=== PATIENT | male | born 1980 | race Caucasian/White ===

== ENCOUNTER 2020-10-07 13:08 | Emergency (ER) | payer OTHER, SELFPAY ==
--- NOTE | ~2020-10-07 | XR_ITS ---
EXAMINATION: XR CHEST CLINICAL INFORMATION: Syncope COMPARISON: Previous chest x-ray February 2017 TECHNIQUE: Frontal view of the chest was obtained. FINDINGS: The cardiac and mediastinal contours are stable. There may be bronchial wall thickening seen in the right upper lobe. This is similar to previous chest x-ray 2016. The lungs are otherwise clear. There is no pleural effusion or pneumothorax. Bony structures are unremarkable. XR/XR chest 1V IMPRESSION: Question bronchial wall thickening in the right upper lobe. This is similar to February 2017 exam. Otherwise unremarkable exam.
[2020-10-07 13:31] VITALS: BP 135/94; PULSE 74; RESP 18; TEMP 36.8; O2SAT 97; BMI 24.5
--- NOTE | 2020-10-07 13:38 | ECG_ITS ---
Test Reason : SYNCOPE Blood Pressure : / mmHG Vent. Rate : 059 BPM Atrial Rate : 059 BPM P-R Int : 122 ms QRS Dur : 090 ms QT Int : 420 ms P-R-T Axes : 070 077 064 degrees QTc Int : 415 ms Sinus bradycardia Otherwise normal ECG No previous ECGs available Referred By: Generic ED Physician Electronically Signed By:JANEY MCGRATH MD
[2020-10-07 14:46] LABS: Glucose, Whole Blood 96 mg/dL (60-115)
[2020-10-07 14:47] LABS: MANUAL DIFF FLAG NO
[2020-10-07 14:49] LABS: Basophils Percent Auto 0.4 % (0-2); Eosinophils Absolute Auto 0.1 X10*3/uL (0.0-0.4); Eosinophils Percent Auto 1.9 % (0-4); Hematocrit 43.4 % (42-52); Hemoglobin 14.8 g/dl (14.0-18.0); Imm Gran Abs Auto 0.01 X10*3/uL (0.00-0.03); Imm Gran Pct Auto 0.1 % (0.0-0.4); Lymphocytes Absolute Auto 1.8 X10*3/uL (1.2-4.9); Lymphocytes Percent Auto 23.5 % (20-40); Mean Corpuscular HGB Conc 34.1 g/dl (31.0-36.0); Mean Corpuscular Hemoglobin 29.9 pg (27.0-33.0); Mean Corpuscular Volume 87.7 fL (80-98); Monocytes Absolute Auto 0.5 X10*3/uL (0.1-1.2); Monocytes Percent Auto 6.1 % (2-11); Neutrophils Absolute Auto 5.1 X10*3/uL (2.0-8.3); Platelet Count 271 X10*3/uL (160-400); Red Blood Count 4.95 X10*6/uL (4.60-5.80); Red Cell Distribution Width 12.1 % (11.0-16.0); White Blood Count 7.5 X10*3/uL (4.8-10.8)
[2020-10-07 15:16] LABS: Anion Gap 9 (12-20); Blood Urea Nitrogen 14 mg/dL (9-16); Calcium 9.8 mg/dL (8.4-10.2); Carbon Dioxide 27 mmol/L (22-29); Chloride 105 mmol/L (96-108); Creatinine Clr Calc Pharmacy 119.2; Estimated Glomerular Filt Rate > 60; Glucose Random 84 mg/dL (60-115); Potassium 4.8 mmol/L (3.3-5.1); Sodium 136 mmol/L (135-145)
[2020-10-07 15:18] LABS: Troponin-I High Sensitivity < 3.5 ng/L (<3.5-35.0)
--- NOTE | 2020-10-07 17:14 | PC.NURSE ---
CALLED WR PATIENT NO RESPONSE X3
== END 2020-10-07 18:12 | disposition left against medical advice (07) ==
PROVIDERS: Emergency Provider Emergency Medicine
DX: T67.5XXA Heat exhaustion, unspecified, initial encounter (principal); X58.XXXA Exposure to other specified factors, initial encounter; Y93.9 Activity, unspecified; Y92.9 Unspecified place or not applicable; Y99.9 Unspecified external cause status
CPT/HCPCS: 36415; 71045; 80048; 82947; 84484; 85025; 93005; 99283

== ENCOUNTER 2021-07-29 07:08 | Emergency (ER) | payer SELFPAY ==
--- NOTE | ~2021-07-29 | XR_ITS ---
EXAMINATION: XR CHEST CLINICAL INFORMATION: Shortness of breath. COMPARISON: 09/29/2020 chest radiograph. TECHNIQUE: Frontal view of the chest was obtained. FINDINGS: No significant abnormality is noted involving the heart, lungs, mediastinum, bony thorax or soft tissues. XR/XR chest 1V IMPRESSION: No acute cardiopulmonary process.
[2021-07-29 07:46] VITALS: BP 126/73; PULSE 66; RESP 16; TEMP 37.3; O2SAT 96; BMI 25.2
[2021-07-29 07:57] VITALS: BP 126/73; PULSE 66; RESP 16; TEMP 37.3; O2SAT 96
--- NOTE | 2021-07-29 08:12 | ECG_ITS ---
Test Reason : SOB Blood Pressure : / mmHG Vent. Rate : 059 BPM Atrial Rate : 059 BPM P-R Int : 124 ms QRS Dur : 092 ms QT Int : 474 ms P-R-T Axes : 073 082 081 degrees QTc Int : 469 ms Sinus bradycardia Otherwise normal ECG When compared with ECG of 07-OCT-2020 14:26, No significant change was found Referred By: Lindsey Paul Electronically Signed By:JANEY MCGRATH MD
--- NOTE | 2021-07-29 08:25 | ED_ITS ---
HPI - SOB/Dyspnea General Chief Complaint: Dyspnea Stated Complaint: SOB Time Seen by Provider: 07/29/21 08:06 Source: patient Mode of arrival: ambulatory History of Present Illness HPI Narrative: 40-year-old male with past medical history disc herniation, substance abuse, presenting to the ED complaining of productive cough, subjective fever, SOB x1 day and mid thoracic back pain s/p heavy lifting at work yesterday. States feels like he cannot get a complete breath. Admits back pain worse with deep breathing/movement. Denies chest pain, abdominal pain, nausea, vomiting, diarrhea, pedal edema, recent travel, numbness, tingling, weakness, urinary incontinence/retention. Patient does admit to using heroin, denies using today, denies IVDA elicited complaint: shortness of breath and pain with inspiration Related Data Allergies Allergy/AdvReac Type Severity Reaction Status Date / Time bee pollen [BEE STINGS] Allergy Severe ANAPHYLAXIS Verified 10/07/20 13:31 Review of Systems Review of Systems: Constitutional: +subj Fever, No Chills,No Fatigue, No Malaise ENT/Mouth: No Ear Pain, No Nasal Congestion, No sore throat, No Rhinorrhea, No Swallowing Difficulty Eyes: No Eye Pain, No Swelling, No Redness, No Foreign Body, No Discharge, No Vision Changes Cardiovascular: No Chest Pain, + SOB, No Dyspnea on Exertion, No Orthopnea, No Edema, No Palpitations Respiratory: + Cough, + Sputum, No Dyspnea Gastrointestinal: No Nausea, No Vomiting, No Diarrhea, No Constipation, No Abdominal pain Genitourinary: No Dysuria, No Urinary Frequency, No Hematuria, No Urinary Incontinence, No Hesitancy Musculoskeletal: + joint pain, No Myalgias, No Joint Swelling Skin: No Skin Lesions, No rash Neuro: No Weakness, No Numbness, No Paresthesias, No Dizziness, No Headache Yes all other systems are reviewed and are negative Neurologic: Denies Sensory deficit (Neuro) PMFSH Past Medical History Attestation statement: The following information was validated with the patient. Medical History Disc herniation Lumbar stenosis Social History Social History Patient Tobacco Use Status: Current everyday Tobacco user Smoked in Last 30 Days: Yes Use of substances other than those prescribed or required for medical reasons: Yes Substance Use Type: Heroin Substance Use Frequency: Daily Last Used Substance: Hours (ago) Advance Directives: Yes Advance Directives Information Provided: No Advance Directives on File: No Physical Exam Vital Signs: Vital Signs: Last Vital Signs Temp 98.9 F 07/29/21 10:28 Pulse 66 07/29/21 10:28 Resp 18 07/29/21 10:28 BP 140/79 H 07/29/21 10:28 Pulse Ox 98 07/29/21 10:28 BMI result Body Mass Index 25.2 Const: Other: Appears under the influence General: no acute distress and lethargic Orientation/consciousness: patient oriented x3 and lethargic Limitations: no limitations HEENT: Head: Yes normal to inspection and Yes atraumatic Ears: hearing grossly normal bilaterally, external ears normal and TM's normal bilaterally General nose exam: Normal external nose present Face and sinus: Yes normal facial exam Mouth: Normal oral and palatal mucosa present Throat: Yes posterior oropharynx normal, Yes tonsils normal, Yes uvula midline and No peritonsillar mass Eyes: General: appearance normal, both eyes and all related structures EOM: EOMs intact bilaterally Neck: Neck: Yes normal visual inspection and Yes no meningeal signs Resp: Effort & Inspection: normal respiratory effort and no respiratory distress Auscultation: clear to auscultation bilaterally, no crackles, no rales, no rhonchi and no wheezes Cardio: Rate: regular rate Heart sounds: S1 normal heart sound present and S2 normal heart sound present GI: Inspection: Yes normal to inspection Palpation (GI): Soft to palpation, nontender, no guarding and not rigid Back/Spine/Pelvis: Other: No midline cervical, thoracic or lumbar spinous tenderness. + bilateral thoracic paraspinal tenderness and right-sided midthoracic MSK tenderness reproducing subjective complaint. No erythema/ecchymosis, no swelling Skin: Rashes: no rashes Wounds: no wounds Neuro: Other: No saddle anesthesia General: patient oriented x3, tone normal, no meningeal signs and no focal motor deficits Gait exam (Neuro): Normal gait present Motor exam (neuro): 5/5 motor strength present throughout Sensory Exam: No Sensory deficit (Neuro) Extrem: General: Yes normal to inspection Course Course Course Narrative: -0916-- leukocytosis of 13.7. D-dimer negative. CRP mildly elevated to 4.41. Still low suspicion for severe sepsis -tox screen positive for opiates, fentanyl, cocaine, and marijuana -1054--CXR unremarkable. COVID-19 and influenza negative. Troponin mildly elevated to 5.1 > will obtain 3 hour repeat. -Patient is sleeping comfortably, easily arousable. Results discussed. -1109--patient eloped the ED prior to repeat troponin MDM - SOB/Dyspnea MDM Narrative Medical decision making narrative: 40-year-old male with past medical history disc herniation, substance abuse, presenting to the ED complaining of productive cough, subjective fever, SOB x1 day and mid thoracic back pain s/p heavy lifting at work yesterday. On exam low-grade fever 99.2, appears under the influence, lungs CTA, no midline spinous tenderness throughout, paraspinal/MSK tenderness reproducing subjective complaint, no focal neuro deficits. Concern for viral illness including influenza/COVID-19 vs pneumonia vs PE. Back pain concerning for MSK pain/strain. Unlikely cauda equina/cord compression or epidural abscess without hx IVDA Low concerns for severe sepsis Plan: EKG, labs, CXR, Tylenol Medical Records Attestation: I reviewed the patient's medical records. Lab Data Attestation: I reviewed the patient's lab results. Result diagrams: 07/29/21 08:28 07/29/21 08:28 Labs: Lab Results 07/29/21 07/29/21 07/29/21 Range/Units 08:28 08:28 08:28 WBC 13.7 H (4.8-10.8) X10*3/uL RBC 4.62 (4.60-5.80) X10*6/uL Hgb 13.8 L (14.0-18.0) g/dl Hct 40.7 L (42.0-52.0) % MCV 88.1 (80.0-98.0) fL MCH 29.9 (27.0-33.0) pg MCHC 33.9 (31.0-36.0) g/dl RDW 12.1 (11.0-16.0) % Plt Count 209 (160-400) X10*3/uL MPV 10.3 (9.4-12.4) fL Immature Gran % (Auto) 0.3 (0.0-0.4) % Neut % (Auto) 87.5 H (45-73) % Lymph % (Auto) 5.8 L (20-40) % Wells % (Auto) 5.5 (2-11) % Eos % (Auto) 0.7 (0-4) % Baso % (Auto) 0.2 (0-2) % Lymph # (Auto) 0.8 L (1.2-4.9) X10*3/uL Wells # (Auto) 0.8 (0.1-1.2) X10*3/uL Eos # (Auto) 0.1 (0.0-0.4) X10*3/uL Baso # (Auto) 0.0 (0.0-0.2) X10*3/uL Abs Immat Gran (auto) 0.04 H (0.00-0.03) X10*3/uL Absolute Neuts (auto) 12.0 H (2.0-8.3) x10*3/uL Absolute Nucleated RBC 0.000 (0.0-0.012) X10*3/uL Nucleated RBC % (auto) 0.0 (0.0-0.2) /100WBC ESR (0-15) MM/HR D-Dimer High Sensitivty < 150 NG/ML Sodium 137 (135-145) mmol/L Potassium 4.0 (3.3-5.1) mmol/L Chloride 102 (96-108) mmol/L Carbon Dioxide 26 (22-29) mmol/L Anion Gap 13 (12-20) BUN 10 (9-16) mg/dL Creatinine 0.85 (0.5-1.4) mg/dL Estim Creat Clear Calc 118.0 Estimated GFR > 60 Random Glucose 113 (60-115) mg/dL Calcium 9.8 (8.4-10.2) mg/dL Troponin I High Sens (<3.5-35.0) ng/L C-Reactive Protein 4.41 H (< or = 0.50) mg/dL B-Natriuretic Peptide (<100) pg/mL Urine Opiates Screen (Not Detect) Urine Fentanyl Screen (Not Detect) Ur Barbiturates Screen (Not Detect) Ur Phencyclidine Scrn (Not Detect) Ur Amphetamines Screen (Not Detect) U Benzodiazepines Scrn (Not Detect) Urine Cocaine Screen (Not Detect) U Marijuana (THC) Screen (Not Detect) COVID-19 (RADHA) (Negative) COVID-19 Clin Com Influenza Type A (YESSI) (Negative) Influenza Type B (YESSI) (Negative) Influenza A & B Note 07/29/21 07/29/21 07/29/21 Range/Units 08:28 08:28 08:46 WBC (4.8-10.8) X10*3/uL RBC (4.60-5.80) X10*6/uL Hgb (14.0-18.0) g/dl Hct (42.0-52.0) % MCV (80.0-98.0) fL MCH (27.0-33.0) pg MCHC (31.0-36.0) g/dl RDW (11.0-16.0) % Plt Count (160-400) X10*3/uL MPV (9.4-12.4) fL Immature Gran % (Auto) (0.0-0.4) % Neut % (Auto) (45-73) % Lymph % (Auto) (20-40) % Wells % (Auto) (2-11) % Eos % (Auto) (0-4) % Baso % (Auto) (0-2) % Lymph # (Auto) (1.2-4.9) X10*3/uL Wells # (Auto) (0.1-1.2) X10*3/uL Eos # (Auto) (0.0-0.4) X10*3/uL Baso # (Auto) (0.0-0.2) X10*3/uL Abs Immat Gran (auto) (0.00-0.03) X10*3/uL Absolute Neuts (auto) (2.0-8.3) x10*3/uL Absolute Nucleated RBC (0.0-0.012) X10*3/uL Nucleated RBC % (auto) (0.0-0.2) /100WBC ESR 12 (0-15) MM/HR D-Dimer High Sensitivty NG/ML Sodium (135-145) mmol/L Potassium (3.3-5.1) mmol/L Chloride (96-108) mmol/L Carbon Dioxide (22-29) mmol/L Anion Gap (12-20) BUN (9-16) mg/dL Creatinine (0.5-1.4) mg/dL Estim Creat Clear Calc Estimated GFR Random Glucose (60-115) mg/dL Calcium (8.4-10.2) mg/dL Troponin I High Sens 5.1 (<3.5-35.0) ng/L C-Reactive Protein (< or = 0.50) mg/dL B-Natriuretic Peptide 16 (<100) pg/mL Urine Opiates Screen POSITIVE H (Not Detect) Urine Fentanyl Screen POSITIVE H (Not Detect) Ur Barbiturates Screen Not Detected (Not Detect) Ur Phencyclidine Scrn Not Detected (Not Detect) Ur Amphetamines Screen Not Detected (Not Detect) U Benzodiazepines Scrn Not Detected (Not Detect) Urine Cocaine Screen POSITIVE H (Not Detect) U Marijuana (THC) Screen POSITIVE H (Not Detect) COVID-19 (RADHA) (Negative) COVID-19 Clin Com Influenza Type A (YESSI) (Negative) Influenza Type B (YESSI) (Negative) Influenza A & B Note 07/29/21 07/29/21 Range/Units 09:42 09:42 WBC (4.8-10.8) X10*3/uL RBC (4.60-5.80) X10*6/uL Hgb (14.0-18.0) g/dl Hct (42.0-52.0) % MCV (80.0-98.0) fL MCH (27.0-33.0) pg MCHC (31.0-36.0) g/dl RDW (11.0-16.0) % Plt Count (160-400) X10*3/uL MPV (9.4-12.4) fL Immature Gran % (Auto) (0.0-0.4) % Neut % (Auto) (45-73) % Lymph % (Auto) (20-40) % Wells % (Auto) (2-11) % Eos % (Auto) (0-4) % Baso % (Auto) (0-2) % Lymph # (Auto) (1.2-4.9) X10*3/uL Wells # (Auto) (0.1-1.2) X10*3/uL Eos # (Auto) (0.0-0.4) X10*3/uL Baso # (Auto) (0.0-0.2) X10*3/uL Abs Immat Gran (auto) (0.00-0.03) X10*3/uL Absolute Neuts (auto) (2.0-8.3) x10*3/uL Absolute Nucleated RBC (0.0-0.012) X10*3/uL Nucleated RBC % (auto) (0.0-0.2) /100WBC ESR (0-15) MM/HR D-Dimer High Sensitivty NG/ML Sodium (135-145) mmol/L Potassium (3.3-5.1) mmol/L Chloride (96-108) mmol/L Carbon Dioxide (22-29) mmol/L Anion Gap (12-20) BUN (9-16) mg/dL Creatinine (0.5-1.4) mg/dL Estim Creat Clear Calc Estimated GFR Random Glucose (60-115) mg/dL Calcium (8.4-10.2) mg/dL Troponin I High Sens (<3.5-35.0) ng/L C-Reactive Protein (< or = 0.50) mg/dL B-Natriuretic Peptide (<100) pg/mL Urine Opiates Screen (Not Detect) Urine Fentanyl Screen (Not Detect) Ur Barbiturates Screen (Not Detect) Ur Phencyclidine Scrn (Not Detect) Ur Amphetamines Screen (Not Detect) U Benzodiazepines Scrn (Not Detect) Urine Cocaine Screen (Not Detect) U Marijuana (THC) Screen (Not Detect) COVID-19 (RADHA) Negative (Negative) COVID-19 Clin Com See Note Influenza Type A (YESSI) Negative (Negative) Influenza Type B (YESSI) Negative (Negative) Influenza A & B Note See Note Discharge Plan Discharge Clinical Impression: Dyspnea, Active substance abuse Patient Disposition: Elopement
[2021-07-29 08:32] LABS: MANUAL DIFF FLAG NO
[2021-07-29 08:34] LABS: Basophils Percent Auto 0.2 % (0-2); Eosinophils Absolute Auto 0.1 X10*3/uL (0.0-0.4); Eosinophils Percent Auto 0.7 % (0-4); Hematocrit 40.7 % (42.0-52.0); Hemoglobin 13.8 g/dl (14.0-18.0); Imm Gran Abs Auto 0.04 X10*3/uL (0.00-0.03); Imm Gran Pct Auto 0.3 % (0.0-0.4); Lymphocytes Absolute Auto 0.8 X10*3/uL (1.2-4.9); Lymphocytes Percent Auto 5.8 % (20-40); Mean Corpuscular HGB Conc 33.9 g/dl (31.0-36.0); Mean Corpuscular Hemoglobin 29.9 pg (27.0-33.0); Mean Corpuscular Volume 88.1 fL (80.0-98.0); Mean Platelet Volume 10.3 fL (9.4-12.4); Monocytes Absolute Auto 0.8 X10*3/uL (0.1-1.2); Monocytes Percent Auto 5.5 % (2-11); Neutrophils Percent Auto 87.5 % (45-73); Platelet Count 209 X10*3/uL (160-400); Red Blood Count 4.62 X10*6/uL (4.60-5.80); Red Cell Distribution Width 12.1 % (11.0-16.0); White Blood Count 13.7 X10*3/uL (4.8-10.8)
[2021-07-29 08:35] VITALS: BP 140/79; PULSE 66; RESP 16; O2SAT 98
[2021-07-29 08:52] LABS: B Type Natriuretic Peptide 16 pg/mL (<100); Troponin-I High Sensitivity 5.1 ng/L (<3.5-35.0)
[2021-07-29] MEDS: Acetaminophen 325 MG TABLET 650 MG PO (08:53)
[2021-07-29 08:54] LABS: Anion Gap 13 (12-20); Blood Urea Nitrogen 10 mg/dL (9-16); C Reactive Protein 4.41 mg/dL (< or = 0.50); Calcium 9.8 mg/dL (8.4-10.2); Carbon Dioxide 26 mmol/L (22-29); Chloride 102 mmol/L (96-108); Estimated Glomerular Filt Rate > 60; Glucose Random 113 mg/dL (60-115); Sodium 137 mmol/L (135-145)
[2021-07-29 09:10] LABS: D Dimer High Sensitivity < 150 NG/ML
[2021-07-29 09:10] LABS: Amphetamine Screen Urine Not Detected (Not Detect); Barbiturates, Urine Not Detected (Not Detect); Benzodiazepines Screen Urine Not Detected (Not Detect); Cannabinoid Screen Urine POSITIVE (Not Detect); Cocaine Screen Urine POSITIVE (Not Detect); Fentanyl, urine POSITIVE (Not Detect); Opiate Screen Urine POSITIVE (Not Detect); Phencyclidine Screen Urine Not Detected (Not Detect)
[2021-07-29 09:37] LABS: Erythrocyte Sedimentation Rate 12 MM/HR (0-15)
[2021-07-29 10:16] LABS: IDNOW Serial# 16C4AD1C
[2021-07-29 10:17] LABS: COVID-19 Test Negative (Negative)
[2021-07-29 10:19] LABS: IDNOW Serial# 08D9AD1C
[2021-07-29 10:21] LABS: Influenza A Negative (Negative); Influenza B2 Negative (Negative)
[2021-07-29 10:28] VITALS: BP 140/79; PULSE 66; RESP 18; TEMP 37.2; O2SAT 98
--- NOTE | 2021-07-29 11:09 | PC.NURSE ---
Pt made aware of plan for repeat troponin at 1130, pt refuses states im not waiting 20 more min, im leaving Lindsey CAMPBELL aware Steady on discharge, acting appropriate. Speech clear
== END 2021-07-29 11:11 | disposition left against medical advice (07) ==
PROVIDERS: Physician Assistant; Emergency Provider Emergency Medicine
DX: R06.02 Shortness of breath (principal); R50.9 Fever, unspecified; R05.9 Cough, unspecified; F11.10 Opioid abuse, uncomplicated; Z72.89 Other problems related to lifestyle; Z20.822 Contact with and (suspected) exposure to COVID-19; Z79.899 Other long term (current) drug therapy
CPT/HCPCS: 36415; 71045; 80048; 80307; 83880; 84484; 85025; 85379; 85652; 86140; 87502; 87635; 93005; 99284; 99285